=== PATIENT | male | born 1950 | race Caucasian/White ===

== ENCOUNTER 2017-05-04 12:29 | Inpatient (IN) | payer MEDICARE, OTHER ==
[~2017-05-04] VITALS: Ht 172.7 cm; Wt 70.8 kg
--- NOTE | 2017-05-04 13:00 | NUR ---
GPS/RN PATIENT ADMITTED ON A 5150 FOR GD AND DTO UNDER THE CARE OF DR TIAN AND DR JOHNSON. BOTH DR'S AWARE OF NEW ADMISSION. PER HOLD, PATIENT WAS THREATENING TO MURDER , SHE STATED THAT SHE WOKE UP WITH HIS FIST IN HER FACE. UPON FACE TO FACE ASSESSMENT, PATIENT IS DISORGANIZED, RAMBLING,EASILY AGITATED, AGGRESSIVE,VERBALLY ABUSIVE TOWARDS STAFF, ATTEMPTING TO OPEN LOCKED DOORS. PATIENT DENIES SI/HI UPON ADMISSION. MEDICATIONS RECONCILED IN SYSTEM. ADMISSION PAPERWORK COMPLETED, BELONGINGS CHECKED IN AND SIGNED FOR, CONTRABAND CONFISCATED AND PUT IN LOCKER, MRSA DONE, SKIN ASSESSMENT AND PICTURES TAKEN. WILL CONTINUE TO MONITOR Q 15 MIN FOR SAFETY AND BEHAVIOR.
[2017-05-04] MEDS ORDERED: MAGNESIUM HYDROXIDE 30 ML UDC PO PRN (14:00)
[2017-05-04] MEDS ORDERED: ACETAMINOPHEN 325 MG TABLET PO PRN (14:00)
[2017-05-04] MEDS ORDERED: LORAZEPAM 0.5 MG TABLET PO PRN (14:00)
[2017-05-04] MEDS ORDERED: MAG HYDROX/AL HYDROX/SIMETH 30 ML UDC PO PRN (14:00)
--- NOTE | 2017-05-04 14:29 | NUR ---
Recreation Therapy Note : Patient ranbles unitellibly in speech and is intrusive into personal body space of others. Patient refers to previous hospitalizations and states veiled threats to others. Boundaries for behavior are being enforced and deescalation techniques are being applied as able.
[2017-05-04] MEDS ORDERED: HYDR12.55 PO (14:37)
[2017-05-04] MEDS ORDERED: ZOLP10TA6 PO (14:37)
[2017-05-04] MEDS ORDERED: CARB200T8 PO (14:37)
[2017-05-04] MEDS ORDERED: GABA-534 PO (14:37)
[2017-05-04] MEDS ORDERED: OLAN20TA3 PO (14:37)
[2017-05-04] MEDS ORDERED: NICO1PAT11 TP (14:39)
[2017-05-04 16:00] VITALS: BP 143/83
--- NOTE | 2017-05-04 16:00 | NUR ---
GPS/RN PT STRIKING OUT AT THE STAFF, THREATENED STAFF. RAMBLES INCOHERENTLY. HARD RESTRAINTS APPLIED FOR SAFETY PER PROTOCOL.
[2017-05-04] MEDS ORDERED: diphenhydrAMINE HCL 50 MG/ML VIAL IM ONE (17:00)
[2017-05-04] MEDS ORDERED: LORAZEPAM INJ 2 MG/ML VIAL IM ONE (17:00)
[2017-05-04] MEDS ORDERED: HALOPERIDOL LACTATE INJ 5 MG/ML VIAL IM ONE (17:00)
--- NOTE | 2017-05-04 17:16 | NUR ---
GPS/RN PATIENT AGGRESSIVE TOWARDS STAFF, STRIKING OUT AT STAFF, VERBALLY ABUSIVE, THREATENING BEHAVIOR TOWARDS STAFF, UNABLE TO REDIRECT, ATTEMPTING TO AWOL, DR BUCHANAN NOTIFIED, NEW ORDER OF HALDOL 10 MG IM , ATIVAN 2 MG IM , BENADRYL 50 MG IM, X 1 NOW. ADMINISTERED ORDERED, TOLERATED WELL, NO DISTRESS NOTED, WILL CONTINUE TO MONITOR FOR SAFETY AND BEHAVIOR.
--- NOTE | 2017-05-04 18:30 | NUR ---
GPS/RN MECHANICAL RESTRAINTS DISCONTINUED . FOOD AND TOILETING PROVIDED.
[2017-05-04 20:17] VITALS: BP 119/55
[2017-05-04] MEDS: GABAPENTIN 300 MG CAPSULE PO SCH (21:31)
[2017-05-04] MEDS: TEMAZEPAM 7.5 MG CAPSULE PO PRN (21:31)
[2017-05-04] MEDS: CARBAMAZEPINE 200 MG TABLET PO SCH (21:32)
[2017-05-05 06:57] LABS: CHOLESTEROL 184 mg/dL (<200); HDL CHOLESTEROL 49 mg/dL (40-60); LDL 109 mg/dL (0-99); TRIGLYCERIDES 95 mg/dL (30-150)
[2017-05-05 06:58] LABS: ALBUMIN 3.3 g/dL (3.4-5.0); BILIRUBIN,TOTAL 0.5 mg/dL (0.2-1.0); CREATININE 0.9 mg/dL (0.6-1.3); POTASSIUM 3.7 mmol/L (3.5-5.1); TOTAL PROTEIN, SERUM 6.9 g/dL (6.4-8.2)
[2017-05-05 08:00] VITALS: BP 118/74
[2017-05-05] MEDS: NICOTINE PATCH (21MG) 21 MG PATCH.TD24 TD SCH (08:10)
[2017-05-05] MEDS: HYDROCHLOROTHIAZIDE 25 MG TABLET PO SCH (08:10)
[2017-05-05] MEDS: BENZTROPINE MESYLATE (1 MG) 1 MG TABLET PO SCH ×2 (11:00→17:59)
[2017-05-05] MEDS: OLANZAPINE 10 MG TABLET PO SCH ×2 (11:00→17:59)
[2017-05-05] MEDS: HALOPERIDOL 5 MG TABLET PO SCH ×2 (11:00→17:59)
[2017-05-05] MEDS: CARBAMAZEPINE 200 MG TABLET PO SCH ×3 (11:00→21:54)
[2017-05-05 16:00] VITALS: BP 125/77
[2017-05-05 20:00] VITALS: BP 131/76
[2017-05-05] MEDS: GABAPENTIN 300 MG CAPSULE PO SCH (21:50)
[2017-05-05] MEDS: TEMAZEPAM 7.5 MG CAPSULE PO PRN (23:33)
[2017-05-06 08:00] VITALS: BP 111/64
[2017-05-06] MEDS: NICOTINE PATCH (21MG) 21 MG PATCH.TD24 TD SCH (08:17)
[2017-05-06] MEDS: CARBAMAZEPINE 200 MG TABLET PO SCH ×3 (08:18→21:33)
[2017-05-06] MEDS: HALOPERIDOL 5 MG TABLET PO SCH ×2 (08:18→17:00)
[2017-05-06] MEDS: BENZTROPINE MESYLATE (1 MG) 1 MG TABLET PO SCH ×2 (08:19→17:00)
[2017-05-06] MEDS: OLANZAPINE 10 MG TABLET PO SCH ×2 (08:19→17:00)
[2017-05-06] MEDS: HYDROCHLOROTHIAZIDE 25 MG TABLET PO SCH (08:26)
--- NOTE | 2017-05-06 10:37 | NUR ---
Initial discharge plan: Pt. states he resides at home with [address] [place] [address] with his Jen [phone]. Pt. states he wants to return home. SW left a voicemail for pt's to confirm that is comfortable having pt. back home and will follow up. RADHA will follow up with MD and family and will help form safe and proper discharge.
--- NOTE | 2017-05-06 11:43 | NUR ---
SW spoke with pt's , Jen [phone] who agrees for to return home.
[2017-05-06 16:00] VITALS: BP 155/97
[2017-05-06 20:54] VITALS: BP 115/72
[2017-05-06] MEDS: GABAPENTIN 300 MG CAPSULE PO SCH (21:33)
[2017-05-06] MEDS: TEMAZEPAM 7.5 MG CAPSULE PO PRN (21:34)
[2017-05-07] MEDS: OLANZAPINE 10 MG TABLET PO SCH ×2 (08:27→16:21)
[2017-05-07] MEDS: BENZTROPINE MESYLATE (1 MG) 1 MG TABLET PO SCH ×2 (08:27→16:21)
[2017-05-07] MEDS: HALOPERIDOL 5 MG TABLET PO SCH ×2 (08:28→16:21)
[2017-05-07] MEDS: HYDROCHLOROTHIAZIDE 25 MG TABLET PO SCH (08:28)
[2017-05-07] MEDS: NICOTINE PATCH (21MG) 21 MG PATCH.TD24 TD SCH (08:28)
[2017-05-07 08:31] VITALS: BP 119/78
[2017-05-07] MEDS: CARBAMAZEPINE 200 MG TABLET PO SCH ×3 (08:31→20:59)
--- NOTE | 2017-05-07 08:40 | NUR ---
REAL ESTATE OPERATIONS MANAGER-NOTES PATIENT C/O OF INDIGESTION AND REQUESTING FOR MAALOX. MAALOX 30ML GIVEN PRN ORDER. WILL CONT. MONITORING.
--- NOTE | 2017-05-07 09:42 | NUR ---
CHLORINE PLANT OPERATOR-NOTES PATIENT REFUSED TEGRETOL 200MG P.O . STATED I JUST NEED TO TAKE AT NIGHT. OFFERED X3 STILL REFUSED. DR. TIAN MADE AWARE OF THE REFUSAL.
--- NOTE | 2017-05-07 13:00 | NUR ---
SW spoke with pt's , Jen [phone] who reported that pt. called her yesterday and was very "rude" and told her that he wants a divorce, but called today and was very sweet. She requested for MD to call her and SW relayed that information to the MD.
[2017-05-07 15:40] VITALS: BP 129/70
--- NOTE | 2017-05-07 17:11 | NUR ---
SUPERVISOR FRAME SAMPLE AND PATTERN-NOTES PATIENT REFUSED TEGRETOL 200MG P.O .OFFERED X3
[2017-05-07 19:44] VITALS: BP 116/65
[2017-05-07 19:55] VITALS: BP 116/65
[2017-05-07] MEDS: TEMAZEPAM 7.5 MG CAPSULE PO PRN (20:58)
[2017-05-07] MEDS: GABAPENTIN 300 MG CAPSULE PO SCH (20:58)
[2017-05-08 08:00] VITALS: BP 128/68
[2017-05-08] MEDS: BENZTROPINE MESYLATE (1 MG) 1 MG TABLET PO SCH ×2 (08:38→17:41)
[2017-05-08] MEDS: HALOPERIDOL 5 MG TABLET PO SCH ×2 (08:38→17:41)
[2017-05-08] MEDS: NICOTINE PATCH (21MG) 21 MG PATCH.TD24 TD SCH (08:38)
[2017-05-08] MEDS: CARBAMAZEPINE 200 MG TABLET PO SCH ×3 (08:38→21:04)
[2017-05-08] MEDS: OLANZAPINE 10 MG TABLET PO SCH ×2 (08:39→17:41)
[2017-05-08] MEDS: HYDROCHLOROTHIAZIDE 25 MG TABLET PO SCH (08:39)
--- NOTE | 2017-05-08 15:24 | NUR ---
RADHA called [facility] to verify pt's medications per MD request, but RADHA was unable to get the information. Pt's , Jen [phone] was contacted and was asked to call the hospital herself and get that information. She agreed
[2017-05-08 16:19] VITALS: BP 106/67
[2017-05-08 20:00] VITALS: BP 118/69
[2017-05-08] MEDS: GABAPENTIN 300 MG CAPSULE PO SCH (21:04)
[2017-05-08] MEDS: TEMAZEPAM 7.5 MG CAPSULE PO PRN (22:24)
--- NOTE | 2017-05-09 07:50 | NUR ---
RN-CO: Patient is behaving well, following directions,calm and cooperative to care. Discontinued 1:1.
[2017-05-09 08:00] VITALS: BP 121/69
[2017-05-09] MEDS: BENZTROPINE MESYLATE (1 MG) 1 MG TABLET PO SCH ×2 (08:44→16:22)
[2017-05-09] MEDS: OLANZAPINE 10 MG TABLET PO SCH ×2 (08:44→16:22)
[2017-05-09] MEDS: HALOPERIDOL 5 MG TABLET PO SCH ×2 (08:44→16:22)
[2017-05-09] MEDS: HYDROCHLOROTHIAZIDE 25 MG TABLET PO SCH (08:44)
[2017-05-09] MEDS: NICOTINE PATCH (21MG) 21 MG PATCH.TD24 TD SCH (08:45)
[2017-05-09] MEDS: CARBAMAZEPINE 200 MG TABLET PO SCH ×3 (08:47→21:01)
--- NOTE | 2017-05-09 10:19 | NUR ---
Jen [phone] called back and provided all history of pt's psychotropic medications. Information was relayed to the attending psychiatrist.
[2017-05-09] MEDS ORDERED: HALOPERIDOL DECANOATE IM 100 MG/ML AMPUL IM ONE (11:00)
[2017-05-09 16:00] VITALS: BP 103/68
[2017-05-09 20:00] VITALS: BP 106/57
[2017-05-09] MEDS: GABAPENTIN 300 MG CAPSULE PO SCH (21:01)
[2017-05-09] MEDS: TEMAZEPAM 7.5 MG CAPSULE PO PRN (22:05)
[2017-05-10 07:57] VITALS: BP 103/71
[2017-05-10] MEDS: NICOTINE PATCH (21MG) 21 MG PATCH.TD24 TD SCH (08:19)
[2017-05-10] MEDS: BENZTROPINE MESYLATE (1 MG) 1 MG TABLET PO SCH ×2 (08:19→17:17)
[2017-05-10] MEDS: OLANZAPINE 10 MG TABLET PO SCH ×2 (08:20→17:17)
[2017-05-10] MEDS: CARBAMAZEPINE 200 MG TABLET PO SCH ×3 (08:20→21:15)
[2017-05-10] MEDS: HALOPERIDOL 5 MG TABLET PO SCH ×2 (08:20→17:17)
[2017-05-10] MEDS: HYDROCHLOROTHIAZIDE 25 MG TABLET PO SCH (08:20)
[2017-05-10 16:11] VITALS: BP 112/58
[2017-05-10 20:00] VITALS: BP 114/62
[2017-05-10] MEDS: GABAPENTIN 300 MG CAPSULE PO SCH (21:15)
[2017-05-11] MEDS: OLANZAPINE 10 MG TABLET PO SCH ×2 (08:37→16:42)
[2017-05-11] MEDS: HALOPERIDOL 5 MG TABLET PO SCH ×2 (08:37→16:37)
[2017-05-11] MEDS: CARBAMAZEPINE 200 MG TABLET PO SCH ×3 (08:37→21:35)
[2017-05-11] MEDS: NICOTINE PATCH (21MG) 21 MG PATCH.TD24 TD SCH (08:37)
[2017-05-11] MEDS: BENZTROPINE MESYLATE (1 MG) 1 MG TABLET PO SCH ×2 (08:37→16:37)
[2017-05-11] MEDS: HYDROCHLOROTHIAZIDE 25 MG TABLET PO SCH (08:38)
[2017-05-11 10:57] VITALS: BP 102/71
[2017-05-11 16:29] VITALS: BP 98/64
[2017-05-11 20:12] VITALS: BP 133/70
[2017-05-11] MEDS: GABAPENTIN 300 MG CAPSULE PO SCH (21:35)
[2017-05-12 08:00] VITALS: BP 113/61
[2017-05-12] MEDS: HALOPERIDOL 5 MG TABLET PO SCH (08:16)
[2017-05-12] MEDS: BENZTROPINE MESYLATE (1 MG) 1 MG TABLET PO SCH ×2 (08:16→16:40)
[2017-05-12] MEDS: OLANZAPINE 10 MG TABLET PO SCH ×2 (08:16→16:40)
[2017-05-12] MEDS: CARBAMAZEPINE 200 MG TABLET PO SCH ×3 (08:18→21:40)
[2017-05-12] MEDS: NICOTINE PATCH (21MG) 21 MG PATCH.TD24 TD SCH (08:18)
[2017-05-12] MEDS: HYDROCHLOROTHIAZIDE 25 MG TABLET PO SCH (08:20)
--- NOTE | 2017-05-12 14:23 | NUR ---
RADHA spoke with Jen [phone] who was notified of pt's discharge tomorrow. She mentioned that she is unable to picker the patient herself, as she does not have a car. RADHA called [facility] [phone] to verify transportation for pt's return. RADHA left a voicemail and will verify.
[2017-05-12 16:00] VITALS: BP 107/60
--- NOTE | 2017-05-12 17:53 | NUR ---
CUT OUT WORKER-NOTES PATIENT EATING HIS DINNER IN THE DAY ROOM,NO ACUTE DISTRESS NOTED.ALL NEEDS ATTENDED AND ANTICIPATED. ENDORSED TO THE CHARGE NURSE FOR CONTINUITY OF CARE.
[2017-05-12] MEDS: GABAPENTIN 300 MG CAPSULE PO SCH (21:40)
[2017-05-12 22:37] VITALS: BP 115/71
[2017-05-12] MEDS: TEMAZEPAM 7.5 MG CAPSULE PO PRN (23:20)
[2017-05-13] MEDS: BENZTROPINE MESYLATE (1 MG) 1 MG TABLET PO SCH ×2 (07:59→16:38)
[2017-05-13] MEDS: HYDROCHLOROTHIAZIDE 25 MG TABLET PO SCH (07:59)
[2017-05-13] MEDS: CARBAMAZEPINE 200 MG TABLET PO SCH ×3 (07:59→21:31)
[2017-05-13 08:00] VITALS: BP 122/74
[2017-05-13] MEDS: OLANZAPINE 10 MG TABLET PO SCH ×2 (08:00→16:38)
[2017-05-13] MEDS: NICOTINE PATCH (21MG) 21 MG PATCH.TD24 TD SCH (08:01)
--- NOTE | 2017-05-13 09:10 | NUR ---
RN-CO: Dr. Gonzalez ordered to cancel discharge today, noted.
--- NOTE | 2017-05-13 12:37 | NUR ---
Discharge for today was cancelled as MD wanted to observe the patient for one more day before discharging. Pt's , Jen [phone] was notified of the cancelled discharge and was notified that the discharge will be tomorrow. RADHA arranged the transportation with [facility] to hot die picker the patient tomorrow morning at 9:00AM
[2017-05-13 16:00] VITALS: BP 120/71
[2017-05-13 21:27] VITALS: BP 108/69
[2017-05-13] MEDS: GABAPENTIN 300 MG CAPSULE PO SCH (21:30)
[2017-05-13] MEDS: TEMAZEPAM 7.5 MG CAPSULE PO PRN (21:58)
[2017-05-14 08:12] VITALS: BP 127/50
[2017-05-14] MEDS: BENZTROPINE MESYLATE (1 MG) 1 MG TABLET PO SCH (08:36)
[2017-05-14] MEDS: NICOTINE PATCH (21MG) 21 MG PATCH.TD24 TD SCH (08:36)
[2017-05-14] MEDS: OLANZAPINE 10 MG TABLET PO SCH (08:36)
[2017-05-14] MEDS: CARBAMAZEPINE 200 MG TABLET PO SCH (08:36)
[2017-05-14 08:37] VITALS: BP 127/50
[2017-05-14] MEDS: HYDROCHLOROTHIAZIDE 25 MG TABLET PO SCH (08:37)
--- NOTE | 2017-05-14 09:00 | NUR ---
GPS/RN PATIENT CLEARED FOR DISCHARGE HOME BY DR TIAN AND DR BERNAL. D/C PAPERWORK COMPLETED, PRESCRIPTIONS INCLUDED, PACKET AND MEDICATIONS EXPLAINED TO PATIENT, VERBALIZED UNDERSTANDING. HOME HEALTH ORDERED BY DR TIAN, PRESCRIPTIONS FAXED TO [facility], BELONGINGS RETURNED AND SIGNED FOR BY PATIENT. PATIENT DENIES SI/HI/AH AT TIME OF DISCHARGE, PSYCHIATRIC TREATMENT PLANS MET, LEFT UNIT WITH TRANSPORT AND [employer] ARCHITECT AT SIDE, CALM, COOPERATIVE, NO DISTRESS NOTED. Addendum: 05/14/17 at 1007 by GERALD BHATT RN PATIENT REFUSED D/C PHOTOS X 3, EXPLAINED RISKS AND BENEFITS.
--- NOTE | 2017-05-14 12:38 | NUR ---
Discharge note: Pt. was discharged today at 9:00AM back home to [address] [place] [id number] with his Jen [phone]. Pharmacy is [facility] [phone] and prescriptions has been faxed. Pt's discharge information has been faxed to Dr. Corey [phone] fax [phone]. Pt. will follow up with Dr. Corey (psychiatrist) at [address] [place] [phone] today, on May 14, at 12:30PM to discuss substance abuse (marijuana and possibly cocaine). Pt. was also referred to Nicotine Anonymous telephone meeting to [employer] [facility] group on Sun 6:00 PM. Pt. was instructed to call [phone] PIN: [phone] . Discharge paperwork has been signed and discharge instructions have been provided to the patient. Pt. was calm and cooperative upon discharge, denied suicidal/homicidal ideations. Addendum: 05/14/17 at 1344 by CALLY GARCIA Pt. was also referred to [facility] [address] [place] [id number] for his monthly Haldol Injections.
== END 2017-05-14 09:00 | disposition home or self-care (01) | DRG 885 ==
LOC: GPS 12:29
PROVIDERS: ADMIT Psychiatry & Neurology Psychiatry; ATTEND Family Medicine
DX: F25.9 Schizoaffective disorder, unspecified (principal); F12.10 Cannabis abuse, uncomplicated; I10 Essential (primary) hypertension; F17.210 Nicotine dependence, cigarettes, uncomplicated; F31.9 Bipolar disorder, unspecified; Z73.6 Limitation of activities due to disability
CPT/HCPCS: 36415; 80053-TC; 80061-TC; 87081-TC; J1200; J1630; J1631; J2060